=== PATIENT | female | born 1940 ===

== ENCOUNTER → 2022-08-07 | Outpatient (CLI) | payer OTHER ==
[2022-08-07 10:24] LABS: Basophils # (auto) 0 10 ^3/uL (0-0.2); Eosinophils # (auto) 0.1 10 ^3/uL (0-0.8); Mean Corpuscular Volume 76.6 fL (80.0-100.0); Monocytes # (auto) 0.3 10 ^3/uL (0-1.3); Neutrophils # (auto) 2.2 10 ^3/uL (1.6-8.6); White Blood Cell 4.6 10^3/uL (4.4-10.8)
[2022-08-07 10:27] LABS: Basophils % (auto) 0.5 % (0.0-2.0); Eosinophils % (auto) 2.1 % (0.0-7.0); Hematocrit 38.7 % (36.0-46.0); Lymphocytes % (auto) 43.5 % (10.0-50.0); Mean Corpuscular Hemoglobin 23.8 pg (28.0-32.0); Monocytes % (auto) 6.4 % (0.0-12.0); Neutrophils % (auto) 47.5 % (37.0-80.0); Nucleated Red Blood Cells % 0.3 %; Red Blood Cells 5.05 10^6/uL (4.0-5.20); Red Cell Distribution Width 13.6 % (11.8-14.3)
[2022-08-07 10:51] LABS: Potassium 4.2 mmol/L (3.5-5.1)
[2022-08-07 10:56] LABS: Urine Bacteria NONE SEEN /hpf (None Seen); Urine Blood Negative /uL (Negative); Urine Specific Gravity 1.019 (1.001-1.035); Urine WBC 1 /hpf (0 - 5)
[2022-08-07 10:59] LABS: Albumin 3.8 g/dL (3.4-5.0); BUN/Creatinine Ratio 20.8; Bilirubin, Total 0.5 mg/dL (0.2-1.0); Calcium 8.7 mg/dL (8.5-10.1); Total Protein 7.2 g/dL (6.4-8.2); Uric Acid 3.8 mg/dL (2.6-6.0)
== END | disposition home or self-care (01) ==
LOC: LAB 09:37
PROVIDERS: ATTEND Internal Medicine
DX: Z00.00 Encounter for general adult medical examination without abnormal findings (principal); E78.5 Hyperlipidemia, unspecified
CPT/HCPCS: 36415; 80053; 81001; 82306; 82465; 83718; 83721; 84439; 84443; 84478; 84550; 85025; 87086

== ENCOUNTER → 2022-12-02 | Outpatient (CLI) | payer OTHER ==
[2022-12-02 09:16] LABS: Basophils # (auto) 0 10 ^3/uL (0-0.2); Eosinophils # (auto) 0.1 10 ^3/uL (0-0.8); Monocytes # (auto) 0.4 10 ^3/uL (0-1.3); Nucleated Red Blood Cells % 0.1 %; Red Cell Distribution Width 14.8 % (11.8-14.3)
[2022-12-02 09:18] LABS: Basophils % (auto) 0.6 % (0.0-2.0); Eosinophils % (auto) 1.5 % (0.0-7.0); Hematocrit 37.9 % (36.0-46.0); Hemoglobin 11.5 g/dL (12.2-16.2); Lymphocytes % (auto) 34.8 % (10.0-50.0); Mean Corpuscular Hemoglobin 23.2 pg (28.0-32.0); Mean Corpuscular Hgb Conc. 30.4 g/dL (32.0-36.0); Mean Corpuscular Volume 76.2 fL (80.0-100.0); Monocytes % (auto) 7.2 % (0.0-12.0); Neutrophils # (auto) 3.2 10 ^3/uL (1.6-8.6); Neutrophils % (auto) 55.9 % (37.0-80.0); Red Blood Cells 4.98 10^6/uL (4.0-5.20); White Blood Cell 5.8 10^3/uL (4.4-10.8)
[2022-12-02 09:32] LABS: Urine Bacteria NONE SEEN /hpf (None Seen); Urine Blood Negative /uL (Negative); Urine Specific Gravity 1.012 (1.001-1.035); Urine WBC 2 /hpf (0 - 5)
[2022-12-02 09:55] LABS: Ferritin 17.5 ng/mL (10-322)
[2022-12-02 09:58] LABS: Folate (Folic Acid) > 24.00 ng/mL (5.38-24)
== END | disposition home or self-care (01) ==
LOC: LAB 08:47
PROVIDERS: ATTEND Internal Medicine
DX: Z00.01 Encounter for general adult medical examination with abnormal findings (principal); E55.9 Vitamin D deficiency, unspecified; M19.90 Unspecified osteoarthritis, unspecified site
CPT/HCPCS: 36415; 80061; 81001; 82306; 82607; 82728; 82746; 83540; 84436; 84443; 84480; 84550; 85025; 87086

== ENCOUNTER → 2024-07-01 | Outpatient (CLI) | payer MEDICAID ==
[2024-07-01 09:47] LABS: Basophils # (auto) 0 10 ^3/uL (0-0.2); Basophils % (auto) 0.5 % (0.0-2.0); Eosinophils # (auto) 0.1 10 ^3/uL (0-0.8); Hemoglobin 11.8 g/dL (12.2-16.2); Monocytes # (auto) 0.4 10 ^3/uL (0-1.3); Neutrophils % (auto) 52.1 % (37.0-80.0)
[2024-07-01 09:50] LABS: Eosinophils % (auto) 1.2 % (0.0-7.0); Hematocrit 38.1 % (36.0-46.0); Lymphocytes # (auto) 2.2 10 ^3/uL (0.4-5.4); Lymphocytes % (auto) 38.7 % (10.0-50.0); Mean Corpuscular Hgb Conc. 31.1 g/dL (32.0-36.0); Mean Corpuscular Volume 77.2 fL (80.0-100.0); Monocytes % (auto) 7.5 % (0.0-12.0); Neutrophils # (auto) 2.9 10 ^3/uL (1.6-8.6); Platelet Count (auto) 132 10^3/uL (140-450); Red Blood Cells 4.93 10^6/uL (4.0-5.20); White Blood Cell 5.6 10^3/uL (4.4-10.8)
[2024-07-01 10:48] LABS: Alanine Aminotransferase 12 U/L (7-40); Albumin 4.2 g/dL (3.2-4.8); Alkaline Phosphatase 77 U/L (46-116); Anion Gap 4 (5-15); Aspartate Aminotransferase 23 U/L (13-40); BUN/Creatinine Ratio 16.7 (10.0-20.0); Blood Urea Nitrogen 14 mg/dL (9-23); Calcium 9.5 mg/dL (8.7-10.4); Chloride 105 mmol/L (98-107); Cholesterol 133 mg/dL (< 200); Glucose 99 mg/dL (74-106); HDL Cholesterol 50 mg/dL (40-59); LDL Cholesterol 76 mg/dL (< 100); Potassium 4.4 mmol/L (3.5-5.1); Sodium 140 mmol/L (136-145); Triglycerides 98 mg/dL (< 150)
[2024-07-01 10:49] LABS: Bilirubin, Total 0.7 mg/dL (0.2-1.0); Total Protein 6.6 g/dL (5.7-8.2); Urine Bacteria None Seen /hpf (None Seen)
[2024-07-01 10:59] LABS: Carbon Dioxide 31 mmol/L (20-31)
[2024-07-01 11:13] LABS: Urine Blood Negative /uL (Negative); Urine Clarity Clear (Clear); Urine Color Light-Yellow (Yellow); Urine Protein, UAD Negative (Negative); Urine Specific Gravity 1.018 (1.001-1.035); Urine Squamous Epithelial Cell FEW /hpf (<5); Urine Urobilinogen Normal (Negative); Urine WBC 1 /hpf (0 - 5); Urine pH 6.5 (5.0-9.0)
== END | disposition home or self-care (01) ==
LOC: LAB 09:02
PROVIDERS: ATTEND Internal Medicine
DX: Z00.01 Encounter for general adult medical examination with abnormal findings (principal); E55.9 Vitamin D deficiency, unspecified
CPT/HCPCS: 36415; 80053; 80061; 81001; 82306; 84436; 84443; 85025; 87086

== ENCOUNTER → 2025-02-14 | Outpatient (CLI) | payer MEDICAID ==
[2025-02-14 09:10] LABS: Albumin 4.4 g/dL (3.2-4.8); Alkaline Phosphatase 74 U/L (46-116); Anion Gap 8 (5-15); BUN/Creatinine Ratio 11.9 (10.0-20.0); Bilirubin, Total 0.5 mg/dL (0.2-1.0); Blood Urea Nitrogen 10 mg/dL (9-23); Calcium 9.2 mg/dL (8.7-10.4); Chloride 104 mmol/L (98-107); Cholesterol 132 mg/dL (< 200); Glucose 97 mg/dL (74-106); Potassium 4.0 mmol/L (3.5-5.1); Sodium 143 mmol/L (136-145); Total Protein 6.7 g/dL (5.7-8.2)
[2025-02-14 09:11] LABS: Alanine Aminotransferase < 9 U/L (7-40); Carbon Dioxide 31 mmol/L (20-31); HDL Cholesterol 39 mg/dL (40-59); Triglycerides 187 mg/dL (< 150)
[2025-02-14 09:17] LABS: Microalb/Creat Ratio, Urine < 3.0
== END | disposition home or self-care (01) ==
LOC: LAB 08:12
PROVIDERS: ATTEND Internal Medicine
DX: E03.9 Hypothyroidism, unspecified (principal); E78.5 Hyperlipidemia, unspecified; R73.9 Hyperglycemia, unspecified
CPT/HCPCS: 36415; 80053; 80061; 82043; 82570; 83036; 84436; 84443; 84480